=== PATIENT | male | born 1970 | race Caucasian/White ===

== ENCOUNTER 2017-05-17 11:04 | Inpatient (IN) | payer OTHER ==
[~2017-05-17] VITALS: Ht 185.4 cm; Wt 116.3 kg
--- NOTE | 2017-05-17 13:00 | NUR ---
Admission note Report received from [facility] RN. Patient arrived to room 3013 via stretcher from [facility]. Patient oriented to room, use of call light. Policies and procedure explained. Patient verbalized understanding. Patient alert and oriented x3. Patient SL and denies c/p or dizziness at this time. Ongoing care.
[2017-05-17] MEDS ORDERED: Polyethylene Glycol (PEG) 17 Gm Powder PO PRN (13:10)
[2017-05-17] MEDS ORDERED: Alum-Mag Hydrox-Simeth 30 mL Suspension PO PRN (13:10)
[2017-05-17] MEDS ORDERED: Ondansetron 2 mg/mL 2 mL Inj IVPUSH PRN (13:10)
[2017-05-17 13:25] VITALS: BP 159/103; PULSE 71; RESP 18; O2SAT 97
[2017-05-17] MEDS ORDERED: Heparin 25K Unit/500mL 0.45 NS 25,000 UNIT in IV Premix 1 EACH IV SCH (13:30)
[2017-05-17 13:35] LABS: BASOPHILS % (AUTO) 0.4 % (0-3); EOSINOPHILS % (AUTO) 1.9 % (0-5); MONOCYTES % (AUTO) 8.9 % (4-12); Mean Corpuscular Hemoglobin 29.8 pg (27.0-35.0); Mean Corpuscular Volume 85.4 fL (81-100); NEUTROPHILS % (AUTO) 48.9 % (40-74); Platelet Count 263 bil/L (150-400)
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
[2017-05-17 14:09] LABS: INR 0.94 ratio
[2017-05-17 14:11] LABS: Magnesium 2.2 mg/dL (1.6-2.6)
[2017-05-17 14:40] VITALS: PULSE 64
[2017-05-17 15:05] VITALS: BP 155/93; PULSE 60; O2SAT 99
[2017-05-17 15:46] LABS: Creatine Kinase 184 U/L (21-232)
[2017-05-17 15:57] LABS: TROPONIN T < 0.010 ug/L (0.0-0.011)
--- NOTE | 2017-05-17 15:57 | NUR ---
Social Work: Initial Assessment Data: See initial assessment. Patient is a 46 year old male who was admitted on 05/17/17 for stable angina per H&P. Patient's insurance is [employer] and patient has no PCP listed at this time. EMR reviewed. SW met with patient to discuss discharge planning. SW role explained. Patient informed SW that he lives with family in a home located in [place]. Patient considers his family and friends to be his main source of support. Patient denies having a DPOA or AD and has declined SW offer for AD resources at this time. Patient confirms that he is I at baseline with all ADLs and care needs. Patient denies having a hx of home health services or SNF. 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 Upon discharge, patient states that family/friend will pick him up or he will call a taxi. Patient was transferred from a different hospital and POV remains in the hospital parking lot. SW provided patient with a discharge planning checklist booklet and encouraged to call with any questions or concerns. Phone number provided. SW will continue to follow. Assessment: Patient will discharge home when medically stable. Plan: Patient will discharge home when medically stable. Transportation will be provided by family/friend/taxi upon discharge. SW will continue to follow. ROSS German Addendum: 05/17/17 at 1612 by LACY SRINIVASAN SS Amended: Links added.
--- NOTE | 2017-05-17 16:00 | DRSVH ---
[facility] [address] [place] [address] Echocardiogram Report Name: OZIEL AVILES RStudy Date: 05/17/2017 Height: 73 in Hospital Exam Location: [facility] Weight: 257 lb Gender: Male BSA: 2.4 m2 : 1970 Age: 46 yrs BP: 159/103 mmHg Reason For Study: NSTEMI Ordering Physician: HOSPITALIST [facility] Performed By: Tom Castellanos Referring Physician: THERESA BAHENA Interpretation Summary 1) Borderline concentric left ventricular hypertrophy with normal size and systolic function (EF 55-60%). 2) Subtle apical hypokinesis noted in some views. 3) Normal right ventricular size and function. 4) No significant valvular abnormalities. 5) No prior Echo available for comparison. Procedure: A two-dimensional transthoracic echocardiogram with color flow and Doppler was performed. The study quality was technically adequate. A contrast injection of Definity was performed to improve assessment of LV function. There is no prior echocardiogram noted for this patient. The patient was in normal sinus rhythm during the exam. Left Ventricle: The left ventricle is normal in size. There is borderline concentric left ventricular hypertrophy. The ejection fraction is estimated to be 55-60%. Left ventricular systolic function is normal. Subtle apical hypokinesis noted in some views. Assessment of diastolic parameters suggests a pseudonormalization pattern, consistent with elevated filling pressures. Right Ventricle: The right ventricle is not well visualized. Atria: The left atrium is moderately dilated. Right atrial size is normal. The interatrial septum is intact with no evidence for an atrial septal defect. Mitral Valve: The mitral valve is normal. There is mild mitral regurgitation. Aortic Valve: The aortic valve is grossly normal. There is no aortic valve stenosis. No aortic regurgitation is present. Tricuspid Valve: The tricuspid valve is not well visualized, but is grossly normal. Pulmonary artery pressures cannot be estimated because of the lack of a measurable TR jet velocity. Pulmonic Valve: The pulmonic valve leaflets are thin and pliable; valve motion is normal. There is a trace or physiologic amount of pulmonic regurgitation. Great Vessels: The aortic root is normal size. The ascending aorta is at the upper limits of normal in size. The pulmonary artery is normal size. The IVC is dilated (diameter is greater than 2.1 cm) and it collapses less than 50% with a sniff. This suggests a high right atrial pressure of 15 mm Hg. Pericardium/ Pleura There is no pericardial effusion. There is no pleural effusion. MMode/2D Measurements & Calculations LVIDd: 5.3 cm RA long axis LVOT diam: 2.2 cm LVIDs: 4.4 cm LA A2 area: 24.1 cm AoV Opening FS: 18.3 % LA A4 area: 22.2 cm RA area EPSS: 0.80 cm LA length (vol) Ao root diam IVSd: 1.1 cm : 18.4 cm LVPWd: 1.1 cm LA vol: 81.5 ml RA vol asc Aorta Diam LA vol index : 57.7 ml RA Ao Arch Diam (Prox : 24.1 mm2 Trans): 3.4 cm IVC diam: 2.3 cm LV bruno. diameter/BSA LV sys. diameter/BSA RVD1 (basal) TAPSE: 1.8 cm (cm/m^2): 2.2 (cm/m^2): 1.8 Doppler Measurements & Calculations Ao V2 max: 132.5 cm/secMV E max agusto MV E/A: 1.5 PA V2 max Ao max P.0 mmHg : 67.5 cm/sec Med Peak E' Agusto : 88.9 cm/sec Ao mean P.2 mmHg MV A max agusto PA mean PG LVOT Max Agusto : 44.6 cm/sec E/E' med: 9.9 : 1.8 mmHg : 100.5 cm/sec Lat Peak E' Agusto HUMA(I,D): 2.5 cm E/E' lat: 6.1 sev ratio: 0.68 E/e' average: 8.0 MV dec time: 0.19 sec Ao V2 mean LV V1 max PG PA V2 mean : 99.2 cm/sec : 64.1 cm/sec Ao V2 VTI LV V1 VTI: 18.0 cm PA pr(Accel) : 5.8 mmHg HUMA(V,D): 2.8 cm2 HUMA indexed to BSA (cm^2/m^2): 1.1 Reading Physician:03:59 PM
--- NOTE | 2017-05-17 16:17 | PCM.CHPCAR ---
Consult Subjective Date of service May 17, 2017 Date of admit May 17, 2017 at 13:01 Provider Requesting Consult Requesting Provider: Damian Lindquist MD Primary Care Physician Primary Care Physician: Dottie Chief Complaint NSTEMI History of Present Illness 46 yo M with no known medical history as patient doesn't have a regular doctor transferred from [facility] with NSTEMI. 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 Five days ago, patient started noticing chest pain for the first time while walking at work. It self resolved within a minute or so of rest. He was off the next day and also had chest pain with exertion at home. The chest pain with exertion got worse on Thursday (two days ago)when he barely walked from his bed in the morning and had chest pain. He went to [facility] emergency room yesterday for evaluation and was noted to have some T-wave changes in the anterior leads. He was admitted overnight and had a mildly elevated troponin with serial lab draws. Patient was transferred to our hospital today for further care. Patient feels good at rest and has no symptoms while in the hospital here. Denies chest pain, shortness of breath, lightheadedness, or syncope. Review of Systems Review of Systems Per history of present illness and otherwise unremarkable PMH Past Medical History None diagnosed Scheduled Aspirin (Aspirin) 81 Mg Tablet 81 MG PO DAILY Atorvastatin (Lipitor) 40 Mg Tablet 40 MG PO DAILY Clopidogrel (Clopidogrel) 75 Mg Tablet 75 MG PO DAILY Lisinopril (Lisinopril) 20 Mg Tablet 20 MG PO HS Metoprolol Tartrate (Metoprolol Tartrate) 25 Mg Tablet 25 MG PO BID Scheduled PRN Nitroglycerin SL (Nitroglycerin SL) 0.4 Mg Tab.subl 0.4 MG SL Q5MIN PRN PRN For Chest Pain Current Inpatient Medications Current Medications Al Hydrox/Mg Hydrox/Simethicone 30 ml Q6H PRN PO; Start 05/17/17 at 13:10 Ondansetron HCl 4 to 8 mg Q4H PRN IVPUSH; Start 05/17/17 at 13:10 Senna 17.2 mg BID PRN PO; Start 05/17/17 at 13:10 Polyethylene Glycol 17 gm DAILY PRN PO; Start 05/17/17 at 13:10 Aspirin 81 mg DAILY PO; Start 05/18/17 at 08:30 Morphine Sulfate 1-2 mg for chest pain Q15M PRN IVPUSH; Start 05/17/17 at 13:10 Heparin Sodium (Porcine) Per Protocol for a... PRN PRN IVPUSH; Start 05/17/17 at 13:30 Metoprolol Tartrate 25 mg BID PO; Start 05/17/17 at 20:30 Lisinopril 5 mg DAILY PO Last administered on 05/17/17 15:08; Admin Dose 5 MG; Start 05/17/17 at 13:45 Atorvastatin Calcium 80 mg HS PO; Start 05/17/17 at 21:00 Acetaminophen 325 mg Q4H PRN PO Last administered on 05/17/17 15:09; Admin Dose 325 MG; Start 05/17/17 at 14:55 Allergies: Coded Allergies: No Known Allergies (Unverified , 05/17/17) Family History Family History Father at 64 due to cereberal aneurysm Mother of cancer Grandfather of stroke Social History Hx Alcohol Use: Yes (Occasional )Hx Substance Use: NoHx Tobacco Use: No Additional Information Lives with family in [place] Exam Vital Signs Vital Sign - Last Date Time Temp Pulse Resp B/P Pulse Ox O2 Delivery O2 Flow Rate FiO2 05/17/17 15:05 60 155/93 99 Room Air 05/17/17 13:25 36.7 18 Objective General appearance: No apparent distress, well-nourished, pleasant, cooperative HEET: Normocephalic atraumatic, no scleral icterus, tongue midline, mucous membranes moist Neck: supple Cardiovascular: RRR, normal S1 and normal S2, no murmurs/ rubs/gallops, PMI nondisplaced, no JVD, no peripheral edema Respiratory: Good aeration, CTAB Abdomen: Soft, nontender, obese, + bowel sounds Neuro: Alert, no facial droop, tongue midline, no gross motor deficits Psych: appropriate affect Skin: no rashes on face, neck, and lower extremities Lab and Diagnostics Labs Labs at [facility]: Troponin I 0.037 (above reference range), CK-MB 2.59 ( above reference range) Result Diagram: 05/17/17 1322 05/17/17 1322 12-lead ECG ECG at [facility] shows sinus rhythm with biphasic T waves in V1 through V3 leads and T-wave inversions in lateral leads Assessment & Plan Assessment 46 yo M with no known medical history as patient doesn't have a regular doctor transferred from [facility] with NSTEMI: # NSTEMI: Patient admitted to our hospital with non-STEMI in the setting of having typical anginal chest pain. Patient is having no resting chest pain presently. ECG suggestive of probable relative and sign that could be from an obstructive proximal LAD lesion. His echo done today shows normal LV size and function with possible apical hypokinesis. I spent significant time educating the patient about his condition and recommending proceeding with coronary angiography with possible PCI tomorrow. Plan as below: - Continue aspirin 81mg daily - Continue atorvastatin 80 mg daily at bedtime - Continue heparin drip - Increase lisinopril from 5mg daily to 20g daliy to get better BP control - Continue metoprolol tartrate 25mg bid - Invasive coronary angiography with possible PCI tomorrow. # HTN, newly diagnosed: Meds as above. VTE Prophylaxis: Other (on heparin drip ) Resuscitation Status: CPR: Attempt Resuscitation Tarun Lockwood MD May 17, 2017 16:17
--- NOTE | 2017-05-17 17:14 | NUR ---
Assumed care Assumed care of pt at 1645. Pt ind in room, A&Ox4, denies any pain and in no apparent distress. IV's intact, patent x2. Verified Heparin gtt dose with off going RN, Patricia Koehler Pt req to rest, aware to notify staff if he needs anything. Bed in lowest, locked position and call light in reach.
[2017-05-17 20:18] VITALS: BP 129/89; PULSE 72; RESP 18; O2SAT 98
[2017-05-17] MEDS: Heparin 5,000 Unit/mL Inj IVPUSH PRN (22:53)
[2017-05-17 23:55] VITALS: PULSE 67
[2017-05-18] VITALS (18 sets, daily range): BP systolic 111–146; BP diastolic 62–91; PULSE 53–77; RESP 16–22; O2SAT 95–99
[2017-05-18 04:13] LABS: BASOPHILS % (AUTO) 0.6 % (0-3); EOSINOPHILS % (AUTO) 1.8 % (0-5); MONOCYTES % (AUTO) 9.4 % (4-12); Mean Corpuscular Hemoglobin 29.5 pg (27.0-35.0); Mean Corpuscular Volume 85.2 fL (81-100); NEUTROPHILS % (AUTO) 51.4 % (40-74); Platelet Count 232 bil/L (150-400)
[2017-05-18 04:43] LABS: Creatine Kinase 166 U/L (21-232)
[2017-05-18 04:44] LABS: TROPONIN T < 0.010 ug/L (0.0-0.011)
[2017-05-18] MEDS: Heparin 5,000 Unit/mL Inj IVPUSH PRN (04:47)
--- NOTE | 2017-05-18 05:19 | NUR ---
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 particularly concerned about getting his car keys to his friend tomorrow answered questions. reassured patient. put notice/update on white board regarding car keys. Addendum: 05/18/17 at 1834 by NIHARIKA STEWART RN Pt. reported and confirmed that his friend picked up his car daly today.
[2017-05-18] MEDS ORDERED: Heparin 1,000 Unit/mL 10 mL Inj ONE (08:43)
[2017-05-18] MEDS ORDERED: Heparin 10,000 Unit/1,000 mL NS Premix IV ONE ×2 (08:43→09:34)
[2017-05-18] MEDS ORDERED: Nitroglycerin 50,000 mcg/250 mL D5W Premix IV ONE (08:43)
[2017-05-18] MEDS ORDERED: Heparin 1,000 Units/500 mL NS Premix IV ONE (08:43)
[2017-05-18] MEDS ORDERED: fentaNYL-PF 50 mCg/mL 2 mL Inj ONE ×2 (09:04→09:21)
--- NOTE | 2017-05-18 11:00 | DI95 ---
[address] [address] INTERVENTIONAL CARDIAC CATHETERIZATION PATIENT: OZIEL AVILES : 1970 MR#: [id number] ADMIT: 05/17/2017 JOB ID: [id number] PROCEDURE: 1. Selective right and left coronary angiography. 2. Percutaneous intervention on the ostial and proximal LAD lesion. INDICATION: Non-ST elevation myocardial infarction. PROCEDURAL DETAILS: The reader is referred to the procedure log for complete details. Briefly, the procedure was done via right femoral approach using a 6-Djiboutian system which was later upsized to a 7-Djiboutian. Further details are enumerated in the procedure log to which the coders and the reader is referred. ANGIOGRAPHIC FINDINGS: 1. Left main: No significant disease 2. LAD: In its ostial and proximal portion has a tubular fibrotic lesion of about 80-90%. Also, there is mild ectasia followed by a 30% plaque. Rest of the vessel is free of any significant disease. 3. Circumflex: A large caliber vessel free of any significant disease. 4. RCA: A large caliber vessel. It is dominant. It is free of any significant disease. 5. Left heart catheterization revealed an LVEDP of 10. There was no gradient upon pullback. Ventriculogram reveals normal ejection fraction. EF is estimated to be 55%. INTERVENTIONAL REPORT: We then did an intervention on the LAD. A Voda guide was used. A Runthrough wire was placed in the LAD and a BMW in the circumflex. Balloon dilation with a 2.0, 3.0, and then finally a 3.5 noncompliant balloon was done. The lesion was, as mentioned, very fibrotic and difficult to yield. It finally yielded with a 3.5 noncompliant balloon at high pressures. Subsequent to that, a 5.0 x 18 mm Omni drug coated stent was deployed. There was distal plaque shift. This necessitated a 4.0 x 12 mm stent to be placed distal to the 1st stent. Overlapping inflations were then done. Final angiographic results were excellent in the LAD. There was plaque shift into the ostium of the circumflex. Kissing balloon inflation was then done with two 4.0 balloons, one in the LAD and one in the circumflex. Final angiographic results were excellent. SUMMARY: Successful intervention of the LAD. The patient is advised to stay on dual antiplatelet therapy for one year post procedure.
--- NOTE | 2017-05-18 13:03 | PCM.PNMED ---
Subjective Date of Service May 18, 2017 Subjective Patient seen and examined. No chest pain. Vitals noted. Exam Vital Signs Vital Sign - Last Date Time Temp Pulse Resp B/P Pulse Ox O2 Delivery O2 Flow Rate FiO2 05/18/17 12:30 65 16 128/83 98 Room Air 05/18/17 04:59 36.6 Intake and Output 05/17/17 05/17/17 05/18/17 Cumulative From/Thru 15:00 23:00 07:00 05/17/17 13:30 - 05/18/17 06:58 Intake Total 0 ml 518 ml 518 ml Output Total 250 ml 800 ml 1050 ml Balance -250 ml -282 ml -532 ml Intake Oral 0 ml 318 ml 318 ml IV Total 200 ml 200 ml Output Urine Total 250 ml 800 ml 1050 ml # Voids 1 1 # Bowel Movements 1 1 Exam General: Alert and oriented 3, in no acute distress, speaking in full sentences , with no troubling neurological signs. Lungs: CTAB all [place], no wheezes, no rhonchi, no crackles, no adventitious lung sounds, no use of accessory muscles of respiration, good air movement, good respiratory effort. Heart: Regular rate and rhythm, grade 3/6 systolic murmur radiating to the carotids bilaterally, no rub, no click, no distant heart sounds, Abdomen: Soft, nontender, nondistended, bowel sounds active, no rebound, no guarding, Extremities: Muscle strength, 5 out of 5 upper/lower extremity and symmetric bilaterally, pulses equal and symmetric upper/lower extremity including radial and dorsalis pedis, was pitting edema bilaterally to level of mid calf with mild chronic lower extremity venous stasis skin changes. Lab and Diagnostics Result Diagram: 05/18/17 0850 05/18/17 0330 Assessment & Plan Patient is a 46-year-old male with no significant past medical history, who is being transferred from [facility] for NSTEMI. > NSTEMI - Trops X 3 negative, EKG unchanged - has been on heparin drip - metoprolol BID, losartan for blood pressure - continue atorvastatin (lipid panel from [facility]: LDL 96, total cholestrol 166) - scheduled for cath today > HTN - continue losartan and metoprolol - will monitor VTE Prophylaxis: Other (on heparin drip ) Resuscitation Status: CPR: Attempt Resuscitation Time spent 35 mins Damian Lindquist MD May 18, 2017 13:03
--- NOTE | 2017-05-18 13:22 | NUR ---
transfer to laboratory engineer Pt A/Xx4 this AM. NPO since midnight. gave one time order for 300 mg plavix, med did not arrive on floor prior to pt getting picked up by transport. Notified transport that pt needs plavix on arrival in laboratory engineer. Pt did receive asa on floor. Pt took phone with him. Remainder of belongings were packed up by SEAL MIXING OPERATOR and taken to [address] where pt transferred to. Report called to Jeni MAYORGA.
--- NOTE | 2017-05-18 15:39 | NUR ---
Post cardiac cath Pt. transferred from [facility] to [facility] at 1325. On arrival, pt. reported no pain. he was alert, CLARK, and oriented. R. groin dressing CDI. R. groin soft to touch. R. DP pulses 2+ WNL. His belongings were transferred to [facility] room. Pt. ambulated to bathroom with SBA. Denied pain with activity. Dressing remained no change (CDI, no bleeding) after activity. Call light was placed within reach. Addendum: 05/18/17 at 1835 by NIHARIKA STEWART RN Pt. ambulated 1 big loop in the hallway, 400'. He was independent with activity, gait steady, no pain.
[2017-05-18] MEDS ORDERED: Atropine 1 mg/10 mL (Code) Syringe IVPUSH PRN (17:05)
[2017-05-18] MEDS ORDERED: Sodium Chloride LOK Flush 10 mL Syringe IVFLUSH PRN (17:05)
[2017-05-18] MEDS ORDERED: 0.9% Sodium Chloride 400 ML (4 HRS) IV ONE (17:05)
[2017-05-18] MEDS ORDERED: 0.9% Sodium Chloride 250 ML BOLUS IV PRN (17:05)
[2017-05-18] MEDS ORDERED: Ondansetron 2 mg/mL 2 mL Inj IVPUSH PRN (17:05)
[2017-05-19 03:19] LABS: BASOPHILS % (AUTO) 0.3 % (0-3); EOSINOPHILS % (AUTO) 0.7 % (0-5); MONOCYTES % (AUTO) 9.4 % (4-12); Mean Corpuscular Hemoglobin 29.9 pg (27.0-35.0); Mean Corpuscular Volume 85.1 fL (81-100); NEUTROPHILS % (AUTO) 69.9 % (40-74); Platelet Count 218 bil/L (150-400)
[2017-05-19 03:38] VITALS: BP 131/82; PULSE 70; RESP 16; O2SAT 99
--- NOTE | 2017-05-19 04:45 | NUR ---
Nursing, NOC shift Right groin site with no bruising, no hematoma. Dressing is CDI. Tolerating ambulating hallway several times at HS and beginning of NOC. Denies chest pain/discomfort. Tele SR 71. Discussed HH diet and options for healthy choices. CTM for changes.
[2017-05-19 07:47] VITALS: BP 127/84; PULSE 72; RESP 18; O2SAT 98
[2017-05-19 08:39] VITALS: PULSE 70
[2017-05-19] MEDS ORDERED: LISI-567 PO ×2 (12:03→12:54)
[2017-05-19] MEDS ORDERED: CLOP75TA28 PO ×2 (12:03→12:54)
[2017-05-19] MEDS ORDERED: METO25TA6 PO ×2 (12:03→12:54)
[2017-05-19] MEDS ORDERED: ATOR40TA69 PO (12:03)
[2017-05-19] MEDS ORDERED: NITR0.4T SL (12:03)
[2017-05-19] MEDS ORDERED: ASPI81TA3 PO (12:03)
[2017-05-19 12:17] VITALS: BP 137/90; PULSE 68; RESP 20; O2SAT 98
[2017-05-19] MEDS ORDERED: LIP40 PO (12:33)
--- NOTE | 2017-05-19 12:37 | PCM.DIMED ---
[address] DO 05/19/17 1211: Discharge Instructions Date of Service May 19, 2017 Dates of Hospitalization May 17, 2017 at 13:01 Discharge Diagnosis Discharge Diagnosis Myocardial Infarction Hypertension Medication Instructions Additional med instructions We would like you to take the following medications at home: Aspirin 81mg daily Clopidogrel 75mg daily Metoprolol 25mg twice per day Atorvastatin 40mg nightly Lisinopril 20mg nightly Nitroglycerine 0.4mg under the tongue. Take 1 every 5 minutes for chest pain until resolved. If you need more than three please proceed to the ER. Test Results Test Results No imaging Diet Discharge Diet: No restrictions Activity Discharge Activity: No restrictions Call your provider Call your provider for: Fever or Chills, Shortness of breath, Bleeding, Chest pain, Vomitting, Excessive diarrhea, Weakness (unilateral) Patient Instructions Patient Instructions Please lift no more than 10 lbs for 10 days. We will provide a note to return to work on 05/23. please take medications as prescribed above. Follow-up plan please follow up with the residency clinic until you have found a primary care doctor. follow up with Dr. Lockwood in 2-3 weeks. Follow-up Provider: [facility] Follow-up with PCP in: 1 week Provider: Tarun Lockwood MD Follow-up in: 3 weeks Abiel Jones MD 05/19/17 1743: Discharge Instructions Attending's Statement The patient was seen and examined together with Dr. Way on 05/19/2017 and I agree with the history, exam and plan as outlined in the note above. . [address] DO May 19, 2017 12:11 Abiel Jones MD May 19, 2017 17:43
[2017-05-19] MEDS ORDERED: NITR0.4T38 SL (12:54)
[2017-05-19] MEDS ORDERED: ASPI-973 PO (12:54)
--- NOTE | 2017-05-19 13:18 | PCM.DC.MED ---
Discharge Summary Date of Service May 19, 2017 Dates of Hospitalization Date of Hospital Admission May 17, 2017 at 13:01 Date of Discharge: May 19, 2017 Providers: Admitting Physician: Damian Lindquist MD Primary Care Physician: Dottie Attending Physician: Abiel Jones MD Diagnosis at Time of Discharge Diagnosis at Time of Discharge Myocardial Infarction Hypertension Consultations Cardiology: Dr. Rose Procedures Other Diagnostics INTERVENTIONAL CARDIAC CATHETERIZATION PROCEDURE: 1. Selective right and left coronary angiography. 2. Percutaneous intervention on the ostial and proximal LAD lesion. ANGIOGRAPHIC FINDINGS: 1. Left main: No significant disease 2. LAD: In its ostial and proximal portion has a tubular fibrotic lesion of about 80-90%. Also, there is mild ectasia followed by a 30% plaque. Rest of the vessel is free of any significant disease. 3. Circumflex: A large caliber vessel free of any significant disease. 4. RCA: A large caliber vessel. It is dominant. It is free of any significant disease. 5. Left heart catheterization revealed an LVEDP of 10. There was no gradient upon pullback. Ventriculogram reveals normal ejection fraction. EF is estimated to be 55%. Armin Magana MD 05/18/17 1027 <Electronically signed by Armin Magana MD> 05/19/17 0879 Brief History Taken from H&P completed by Dr. Lindquist: 46 yo M with no known medical history as patient doesn't have a regular doctor transferred from [facility] with NSTEMI. 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 Five days ago, patient started noticing chest pain for the first time while walking at work. It self resolved within a minute or so of rest. He was off the next day and also had chest pain with exertion at home. The chest pain with exertion got worse on Thursday (two days ago)when he barely walked from his bed in the morning and had chest pain. He went to [facility] emergency room yesterday for evaluation and was noted to have some T-wave changes in the anterior leads. He was admitted overnight and had a mildly elevated troponin with serial lab draws. Patient was transferred to our hospital today for further care. Patient feels good at rest and has no symptoms while in the hospital here. Denies chest pain, shortness of breath, lightheadedness, or syncope. Hospital Course Patient is a 46-year-old male with no significant past medical history, who is being transferred from [facility] for NSTEMI. NSTEMI, present on admission, stable - Trops X 3 negative, EKG unchanged - Continue aspirin - Continue metoprolol BID, continue lisinopril for blood pressure - continue atorvastatin (lipid panel from [facility]: LDL 96, total cholestrol 166) - Cardiac cath, results as above HTN - continue lisinopril and metoprolol Exam Vital Signs (Last) Date Time Temp Pulse Resp B/P Pulse Ox O2 Delivery O2 Flow Rate FiO2 05/19/17 12:17 37.0 68 20 137/90 98 Room Air Exam General: No acute distress, well-developed, well-nourished Head: Normocephalic, atraumatic. External ears without defect. Eyes: Pupils equal, round, and reactive to light and accommodation. Anicteric sclerae, moist conjunctivae. Neck: Normal range of motion, no lymphadenopathy noted Cardiovascular: Regular rate and rhythm with no murmurs, rubs, or gallops appreciated Pulmonary: Clear to auscultation bilaterally with no crackles, wheezes, or rhonchi. Normal respiratory effort with no use of accessory muscles. Abdomen: Bowel tones present. Soft, nontender, nondistended. Extremities: No clubbing, cyanosis, edema Skin: Normal temperature, turgor, and texture; no rash, ulcers, or subcutaneous nodules appreciated. Neurological: Cranial nerves grossly intact. Reflexes, coordination, and sensory function within normal limits. Normal muscle strength, tone, and bulk. Psychiatric: Normal mood and affect. Alert and oriented to person, place, and time Test 05/17/17 12:22 05/17/17 13:22 05/18/17 03:30 05/19/17 02:55 Hold Echavarria Top Tube Received (Received) Prothrombin Time 10.0sec (8.1-12.5) Prothromb Time International Ratio 0.94ratio Magnesium Level 2.2mg/dL (1.6-2.6) Total Bilirubin 0.4mg/dL (0.0-1.2) Aspartate Amino Transf (AST/SGOT) 24U/L (0-50) Alanine Aminotransferase (ALT/SGPT) 27U/L (0-44) Alkaline Phosphatase 104U/L (25-150) Total Protein 7.8g/dL (6.4-8.4) Albumin 4.4g/dL (3.4-5.0) Activated Partial Thromboplast Time 42.1sec (22.8-33.0) Total Creatine Kinase 166U/L (21-232) Creatine Kinase MB 4.7ng/mL (0.0-10.4) Creatine Kinase MB % % (0.0-5.0) Troponin T < 0.010ug/L (0.0-0.011) Triglycerides Level 159mg/dL (0-149) Cholesterol Level 158mg/dL (100-199) LDL Cholesterol, Calculated 89.200mg/dL (0-99) VLDL Cholesterol 31.800mg/dL HDL Cholesterol 37mg/dL (>39) Cholesterol/HDL Ratio 4.27 (0.0-4.4) White Blood Count 10.5th/mm3 (3.8-10.1) Red Blood Count 4.62mil/mm3 (4.40-5.80) Hemoglobin 13.8g/dL (13.8-17.2) Hematocrit 39.3% (41.0-50.0) Mean Corpuscular Volume 85.1fL (81-100) Mean Corpuscular Hemoglobin 29.9pg (27.0-35.0) Mean Corpuscular Hemoglobin Concent 35.1% (32.0-37.0) Red Cell Distribution Width 12.4% (12.3-15.4) Platelet Count 218bil/L (150-400) Neutrophils (%) (Auto) 69.9% (40-74) Lymphocytes (%) (Auto) 19.4% (14-46) Monocytes (%) (Auto) 9.4% (4-12) Eosinophils (%) (Auto) 0.7% (0-5) Basophils (%) (Auto) 0.3% (0-3) Sodium Level 137mEq/L (134-144) Potassium Level 3.8mEq/L (3.5-5.2) Chloride Level 101mEq/L (97-108) Carbon Dioxide Level 22mmol/L (18-29) Blood Urea Nitrogen 22mg/dL (6-24) Creatinine 0.94mg/dL (0.76-1.27) Estimat Glomerular Filtration Rate 93mL/min (>59) Glucose Level 123mg/dL (60-99) Calcium Level 8.7mg/dL (8.5-10.1) Discharge Medications Discharge Medications Aspirin (Aspirin) 81 Mg Tablet 81 MG PO DAILY Prescribed by: CASTRO KEATING DO Atorvastatin (Lipitor) 40 Mg Tablet 40 MG PO DAILY Prescribed by: CASTRO KEATING DO Clopidogrel (Clopidogrel) 75 Mg Tablet 75 MG PO DAILY Prescribed by: CASTRO KEATING DO Lisinopril (Lisinopril) 20 Mg Tablet 20 MG PO HS Prescribed by: CASTRO KEATING DO Metoprolol Tartrate (Metoprolol Tartrate) 25 Mg Tablet 25 MG PO BID Prescribed by: CASTRO KEATING DO As needed Nitroglycerin SL (Nitroglycerin SL) 0.4 Mg Tab.subl 0.4 MG SL Q5MIN PRN PRN For Chest Pain Prescribed by: CASTRO KEATING DO Additional med instructions We would like you to take the following medications at home: Aspirin 81mg daily Clopidogrel 75mg daily Metoprolol 25mg twice per day Atorvastatin 40mg nightly Lisinopril 20mg nightly Nitroglycerine 0.4mg under the tongue. Take 1 every 5 minutes for chest pain until resolved. If you need more than three please proceed to the ER. Followup Plan Disposition: Home Follow-up plan please follow up with the residency clinic until you have found a primary care doctor. follow up with Dr. Lockwood in 2-3 weeks. Discharge Diet: No restrictions Discharge Activity: No restrictions Patient Instructions Please lift no more than 10 lbs for 10 days. We will provide a note to return to work on 05/23. please take medications as prescribed above. Follow-up Provider: [facility] Follow-up with PCP in: 1 week Provider: Tarun Lockwood MD Follow-up in: 3 weeks Time spent Greater than 30 minutes was spent in preparation of discharge with greater than 50% of that time dedicated to patient counseling and coordination of care. . Attending Statement The patient was seen and examined together with Dr. Keating on 05/19/2017 and I agree with the history, exam and plan as outlined in the note above. . copies to: [facility] Castro Keating DO May 19, 2017 13:18 Abiel Jones MD May 19, 2017 17:44
== END 2017-05-19 14:27 | disposition home or self-care (01) | DRG 247 ==
LOC: MPC 13:01 → PCC 05-18 12:31
PROVIDERS: ADMIT Internal Medicine; ATTEND Internal Medicine
PROC: 027035Z Dilation of Coronary Artery, One Artery with Two Drug-eluting Intraluminal Devices, Percutaneous Approach (ICD-10-PCS; principal; 2017-05-18)
PROC: 4A023N7 Measurement of Cardiac Sampling and Pressure, Left Heart, Percutaneous Approach (ICD-10-PCS; 2017-05-18)
PROC: B2151ZZ Fluoroscopy of Left Heart using Low Osmolar Contrast (ICD-10-PCS; 2017-05-18)
PROC: B2111ZZ Fluoroscopy of Multiple Coronary Arteries using Low Osmolar Contrast (ICD-10-PCS; 2017-05-18)
DX: I21.4 Non-ST elevation (NSTEMI) myocardial infarction (principal); I10 Essential (primary) hypertension; Z77.22 Contact with and (suspected) exposure to environmental tobacco smoke (acute) (chronic)